=== PATIENT | female | born 1975 | race Two or more races ===

== ENCOUNTER 2021-10-07 09:53 | Emergency (ER) | payer SELFPAY ==
[~2021-10-07] VITALS: Ht 162.6 cm; Wt 79.4 kg
[2021-10-07] MEDS ORDERED: KETOROLAC TROMETH 60MG/2ML VIAL IM ONE (11:30)
[2021-10-07] MEDS ORDERED: ONDANSETRON ODT 4 MG TAB PO ONE (11:45)
[2021-10-07 12:50] VITALS: BP 110/52
[2021-10-07] MEDS ORDERED: IBUP800T27 PO (12:56)
== END 2021-10-07 13:04 | disposition home or self-care (01) ==
LOC: ER 09:53
DX: G44.209 Tension-type headache, unspecified, not intractable (principal); Z98.890 Other specified postprocedural states
CPT/HCPCS: 70450; 96372; 99284; J1885; Q0162